=== PATIENT | female | born 1995 | race Caucasian/White ===

== ENCOUNTER 2016-10-27 18:48 | Emergency (ER) | payer SELFPAY ==
[2016-10-27 18:48] VITALS: BMI 27.2
[2016-10-27 19:25] VITALS: O2SAT 100
--- NOTE | 2016-10-27 19:56 | C.PDOC ---
History Of Present Illness 21 year old patient presents to the emergency department complaining of abdominal pain for the past 2 weeks. She notes bright red blood in her vomitus for the past few days. Patient denies black stool, fever, chest pain, shortness of breath or back pain. Time Seen by Provider: 10/27/16 19:55 Chief Complaint (Nursing): Abdominal Pain History Per: Patient History/Exam Limitations: no limitations Onset/Duration Of Symptoms: Worse Since (last few days), Other (2 weeks) Current Symptoms Are (Timing): Still Present Context: Other Severity: Mild Pain Scale Rating Of: 3 Location Of Pain/Discomfort: Diffuse Radiation Of Pain To:: None Quality Of Discomfort: "Pain" Associated Symptoms: Vomiting Exacerbating Factors: None Alleviating Factors: None Last Bowel Movement: Today Recent travel outside of the [place]: No Past Medical History Reviewed: Historical Data, Nursing Documentation, Vital Signs Vital Signs: Last Vital Signs Temp 98.0 F 10/27/16 23:06 Pulse 78 10/27/16 23:06 Resp 18 10/27/16 23:06 BP 96/63 L 10/27/16 23:06 Pulse Ox 100 10/27/16 23:06 - Jogli Procedures DELIVERY OF PRODUCTS OF CONCEPTION, EXTERNAL APPROACH (05/01/15) DIVISION OF FEMALE PERINEUM, EXTERNAL APPROACH (05/01/15) Family History: States: Unknown Family Hx - Social History Hx Tobacco Use: No Hx Alcohol Use: No Hx Substance Use: No - Immunization History Hx Tetanus Toxoid Vaccination: No Hx Influenza Vaccination: No Hx Pneumococcal Vaccination: No Review Of Systems Except As Marked, All Systems Reviewed And Found Negative. Constitutional: Negative for: Fever Cardiovascular: Negative for: Chest Pain Respiratory: Negative for: Shortness of Breath Gastrointestinal: Positive for: Vomiting, Abdominal Pain Musculoskeletal: Negative for: Back Pain Physical Exam - Physical Exam Appears: Non-toxic, No Acute Distress Skin: Warm, Dry Head: Atraumatic, Normacephalic Eye(s): bilateral: Normal Inspection Oral Mucosa: Moist Neck: Normal ROM, Supple Chest: Symmetrical Cardiovascular: Rhythm Regular Respiratory: Normal Breath Sounds, No Rales, No Rhonchi, No Wheezing Gastrointestinal/Abdominal: Soft, No Tenderness, No Guarding, No Rebound, Other (NG tube) Back: Normal Inspection, No CVA Tenderness Extremity: Normal ROM Neurological/Psych: Oriented x3, Normal Speech, Normal Cognition Gait: Steady ED Course And Treatment - Laboratory Results Result Diagrams: 10/27/16 20:19 10/27/16 20:19 O2 Sat by Pulse Oximetry: 100 (room air) Pulse Ox Interpretation: Normal Progress Note: Plan: Labs, Pepcid Medical Decision Making Medical Decision Making: Angio tube inserted. No acute bleeding noted. Disposition Counseled Patient/Family Regarding: Diagnosis - Disposition Referrals: [facility] [Outside] Disposition Time: 23:19 Condition: STABLE Prescriptions: Famotidine [Pepcid] 20 mg PO BID #14 tab Nitrofurantoin Macrocrystals [Macrobid] 1 cap PO BID #14 cap Instructions: (ED), Gastritis (DC), Urinary Tract Infection in (ED) - POA Present On Arrival: None - Clinical Impression Clinical Impression: Gastritis, Urinary tract infection affecting - Scribe Statement The provider has reviewed the documentation as recorded by the Scribe Milagros Keen Provider Attestation: All medical record entries made by the Scribe were at my direction and personally dictated by me. I have reviewed the chart and agree that the record accurately reflects my personal performance of the history, physical exam, medical decision making, and the department course for this patient. I have also personally directed, reviewed, and agree with the discharge instructions and disposition.
[2016-10-27 20:07] LABS: RBC URINE < 1 /hpf (0-3); URINE BACTERIA FEW (<OCC); URINE BILIRUBIN NEGATIVE (NEGATIVE); URINE BLOOD NEGATIVE (NEGATIVE); URINE COLOR Yellow (YELLOW); URINE GLUCOSE (UA) 1+ mg/dL (Normal); URINE KETONE NEGATIVE (NEGATIVE); URINE LEUKOCYTE ESTERASE 1+ Leu/uL (Negative); URINE PROTEIN NEGATIVE (NEGATIVE); URINE UROBILINOGEN NORMAL mg/dL (0.2-1.0); WBC URINE 42 /hpf (0-5)
[2016-10-27 20:27] LABS: BASO # 0.1 K/uL (0.0-0.2); BASO % 0.5 % (0.0-2.0); EOS % 0.3 % (0.0-4.0); HEMATOCRIT 35.7 % (34.0-47.0); LYMPH # 1.9 K/uL (1.0-4.3); LYMPH % 17.9 % (20.0-40.0); MEAN CORPUSCULAR HEMOGLOBIN 28.2 pg (27.0-31.0); MEAN CORPUSCULAR HGB CONC 33.6 g/dL (33.0-37.0); MEAN PLATELET VOLUME 8.2 fL (7.2-11.7); MONO # 0.7 K/uL (0.0-0.8); RED CELL DISTRIBUTION WIDTH 13.9 % (11.5-14.5); WHITE BLOOD COUNT 10.9 K/uL (4.8-10.8)
[2016-10-27 20:33] LABS: CHLORIDE 95 mmol/L (98-107); POTASSIUM 3.9 mmol/L (3.6-5.2); SODIUM 134 mmol/L (132-148)
[2016-10-27 20:35] LABS: BILIRUBIN,TOTAL 0.5 mg/dL (0.2-1.3); GFR AFRICAN-AMERICAN > 60
[2016-10-27 20:36] LABS: ALB/GLOB RATIO 1.5 (1.0-2.1); ALKALINE PHOSPHATASE 41 U/L (38-126); ALT/SGPT 24 U/L (9-52); AST/SGOT 16 U/L (14-36); BLOOD UREA NITROGEN 6 mg/dL (7-17); CALCIUM 8.7 mg/dl (8.6-10.4); CARBON DIOXIDE 29 mmol/L (22-30); GLUCOSE,RANDOM 81 mg/dL (65-105); TOTAL PROTEIN 7.2 g/dL (6.3-8.3)
[2016-10-27 23:07] VITALS: BP 96/63; PULSE 78; RESP 18; TEMP 98
== END 2016-10-27 23:27 | disposition home or self-care (01) ==
LOC: C.ER 18:48
DX: O23.40 Unspecified infection of urinary tract in pregnancy, unspecified trimester (principal); O26.899 Other specified pregnancy related conditions, unspecified trimester; K29.70 Gastritis, unspecified, without bleeding; Z3A.00 Weeks of gestation of pregnancy not specified

== ENCOUNTER 2017-02-02 21:35 | Emergency (ER) | payer OTHER ==
[2017-02-02 22:00] VITALS: BMI 24.6
[2017-02-02 22:26] LABS: RBC URINE < 1 /hpf (0-3); URINE BACTERIA RARE (<OCC); URINE BILIRUBIN NEGATIVE (NEGATIVE); URINE BLOOD NEGATIVE (NEGATIVE); URINE COLOR Yellow (YELLOW); URINE GLUCOSE (UA) NORMAL (Normal); URINE KETONE NEGATIVE (NEGATIVE); URINE LEUKOCYTE ESTERASE 3+ Leu/uL (Negative); URINE PROTEIN NEGATIVE (NEGATIVE); URINE UROBILINOGEN NORMAL mg/dL (0.2-1.0)
[2017-02-02 22:27] LABS: WBC URINE 20 /hpf (0-5)
--- NOTE | 2017-02-02 22:46 | OBHP ---
Datetime: 02/02/2017 22:41 IP Adm Impression: , intrauterine IP Chief Complaint Other: cramping Admit Comment, IP Provider: at 24+weks came with c/o pain on walking and cramping for few daysa , no ctxs, vb, lf,+fm, no dysuria. obhx 1 x pmh den soch den psh den ve closed ua 3 +le a/p at 24weeks uti plan dc home ptl given po hyra macrobid 100 mg bid x 7 days f/u in clinic in 3-4 days Pelvic Type - PN: Adequate Extremities - PN: Normal Abdomen - PN: Normal Back - PN: Normal Breast - PN: Normal Lungs - PN: Normal Heart - PN: Normal Thyroid - PN: Normal Neurologic - PN: Normal HEENT - PN: Normal General - PN: Normal FHR - Baseline A Provider: 140 Contraction Comments Provider: none Comments, ACOG Physical Exam: gravid,non ten ext no luiz ve closed Vital Signs Provider: Reviewed; Within Normal Limits NICHD Variability Prov Fetus A: Moderate 6-25bpm Dilatation, Provider: 0 Effacement, Provider: 0 Station, Provider: -3 Genitourinary Exam: Normal DTRs - PN: Normal
--- NOTE | 2017-02-02 22:46 | OBDCSUM ---
Datetime: 02/02/2017 22:44 Discharged to, Provider: Home Follow up at, Provider: 3-4 days Follow up in weeks, Provider: clinic Disch Activity Restrictions: Nothing in vagina - Alicia, tampons, douche Discharge Comment, Provider: dc home ptl given po hyra macrobid 100 mg bid x 7 days f/u in clinic in 3-4 days Discharge Diagnosis Prov Other: 24wee uti
[2017-02-03 03:28] VITALS: BP 102/51; PULSE 81; RESP 18; TEMP 98.2
== END 2017-02-02 22:50 | disposition home or self-care (01) ==
LOC: C.EROB 21:35
DX: O23.42 Unspecified infection of urinary tract in pregnancy, second trimester (principal); Z3A.24 24 weeks gestation of pregnancy

== ENCOUNTER 2017-02-07 20:40 | Emergency (ER) | payer OTHER ==
--- NOTE | 2017-02-07 21:26 | OBHP ---
Datetime: 02/07/2017 21:19 IP Adm Impression: , intrauterine ; No Active Labor IP Chief Complaint Other: bloodin urine IP Adm Impression Other: uti IP Admit Plan: Discharge home Admit Comment, IP Provider: chief complaint-bllod in urine HPI at 25.1 wga with c/o noticing blood in urine this evening when at school.Patient was diag nosed with uti 3 days ago and given macrobid.she did not fill alec script so far.deneis back pain, fev er, chills, dysuria, urgency course uncomplicated PMH denies PSH denies OBGYN HX Social hx denies tobacco,alcohol or illicit drug use Exam see exam section Speculum exam-no blood in vagina; cervix closed A/P Patient at 25.1 wga with hematuria.UTI -Ptaient advsied to fill the scruipt for antibiotic nighat -drink plenty of fluid -follow up in clinic in 2 days Pelvic Type - PN: Adequate Extremities - PN: Normal Abdomen - PN: Normal Back - PN: Normal Lungs - PN: Normal Heart - PN: Normal Neurologic - PN: Normal General - PN: Normal FHR - Baseline A Provider: 145 Contraction Comments Provider: none Gestation - Est Wks by US: 25.1 EGA AdmitDate IP: 25.1 Vital Signs Provider: Reviewed; Within Normal Limits IP Chief Complaint: Other NICHD Variability Prov Fetus A: Moderate 6-25bpm Dilatation, Provider: 0 Genitourinary Exam: Normal DTRs - PN: Normal
[2017-02-08 01:38] VITALS: BP 99/44; PULSE 95; RESP 20
== END 2017-02-07 21:16 | disposition home or self-care (01) ==
LOC: C.EROB 20:40
DX: O26.892 Other specified pregnancy related conditions, second trimester (principal); R31.9 Hematuria, unspecified; Z3A.25 25 weeks gestation of pregnancy

== ENCOUNTER 2017-03-02 17:38 | Emergency (ER) | payer OTHER ==
--- NOTE | 2017-03-02 22:01 | OBHP ---
Datetime: 03/02/2017 21:56 Admit Comment, IP Provider: OB attending Patient arrived to [facility] Was was put on monitor rn notifie dme of the patient arrival but patient left the hospital without being evaluated by me. Found the patient room to be empty.Patient was called and then on no reply her mother was called and informed of the patient leaving the unit without informin.Patient eventually called back and stated s he feels ok and will follow up with obgyn Datetime: 02/07/2017 21:19 EGA AdmitDate IP: 25.1
[2017-03-03 10:30] VITALS: BP 98/58; PULSE 83; RESP 18; TEMP 98.8
== END 2017-03-02 18:30 | disposition left against medical advice (07) ==
LOC: C.EROB 17:38
DX: Z02.89 Encounter for other administrative examinations (principal); Z00.00 Encounter for general adult medical examination without abnormal findings

== ENCOUNTER 2017-05-23 22:48 | Emergency (ER) | payer OTHER ==
[2017-04-18 18:11] VITALS: BMI 26.2
--- NOTE | 2017-05-23 23:23 | OBHP ---
Datetime: 05/23/2017 23:06 IP Adm Impression: Postterm, intrauterine ; No Active Labor IP Admit Plan: Discharge home Admit Comment, IP Provider: 22 y.o. , LMP 08/15/16, ANA 05/22/17, EGA 40w 1d c/o lower abdomi nal cramps "like bad period cramps", 08/05; and low back pain x 4-5 days "it's more uncomfortable to e [place] walk". (+) AFM; denies LOF, VB. Last had sexual intercourse 3 weeks ago. care: [facility]: noted for anemia, and treated for UTI x 2. P Ob: 2014, Spont Ab, 3 months, no D_C. late 2014, , female 6lb 7oz, [facility] 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 No Pap to date PMH: denies PSH: denies NKDA Meds: PNV Soc Hx: denies tobacco , illicit drug or EtOH use. Lives with her daughter and a grandmother. With FOB x 1 1/2 years. 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 Father alive 37 y.o.; both, no med issues. (+) fam h/o ovarian and pa ncreatic cancer P.E.: as above. Petite, in NAD. Awake, alert, oriented to time, person and place. Pleasant and co operative. FOB present. Assessment: 22 y.o. P1011, 40w 1d, not in labor. Category 1 tracing. Clinically stable. Plan: 1) Discharge home 2) Reviewed S/S labor. 3) Keep appointment 05/24/17 4) Anticipate IOL at 41 weeks (05/30/17), if no spontaneous onset of labor. Pelvic Type - PN: Adequate Extremities - PN: Normal Abdomen - PN: Normal Back - PN: Normal Breast - PN: Not Done Lungs - PN: Normal Heart - PN: Normal Thyroid - PN: Not Done Neurologic - PN: Normal HEENT - PN: Normal General - PN: Normal Presentation-Admit: Vertex FHR - Baseline A Provider: 135 Contraction Comments Provider: none Comments, ACOG Physical Exam: Abdomen: Gravid. Soft, non tender. all other systems reviewed and are negative Gestation - Est Wks by US: 40w 1d EGA AdmitDate IP: 40.1 Vital Signs Provider: Reviewed; Within Normal Limits IP Chief Complaint: Maternal discomfort NICHD Variability Prov Fetus A: Moderate 6-25bpm NICHD Accel Fetus A IP Provider: 15X15 FHR Category Provider Fetus A: Category I NICHD Decel Fetus A IP Provider: None Dilatation, Provider: 0 Effacement, Provider: long Station, Provider: high Genitourinary Exam: Normal DTRs - PN: Not Done
[2017-05-24 03:41] VITALS: BP 122/61; PULSE 86; RESP 18; TEMP 98.2
== END 2017-05-23 23:18 | disposition home or self-care (01) ==
LOC: C.EROB 22:48
DX: O26.893 Other specified pregnancy related conditions, third trimester (principal); Z3A.40 40 weeks gestation of pregnancy; R10.30 Lower abdominal pain, unspecified

== ENCOUNTER 2017-05-29 14:40 | Emergency (ER) | payer OTHER ==
[2017-04-18 18:11] VITALS: BMI 26.2
--- NOTE | 2017-05-29 14:53 | OBHP ---
Datetime: 05/29/2017 14:40 IP Adm Impression: Postterm, intrauterine ; No Active Labor IP Admit Plan: Discharge home Admit Comment, IP Provider: 22 y.o. , LMP 08/15/16, ANA 05/22/17, EGA 41 weeks presented for IOL. (+) AFM; denies LOF, VB. Last had sexual intercourse 3 weeks ago. care: [facility]: not ed for anemia, and treated for UTI x 2. Not seen since 04/21/17; has missed all her appointments sinc e then. P Ob: 2014, Spont Ab, 3 months, no D_C. late 2014, , female 6lb 7oz, [facility] 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 No Pap to date PMH: denies PSH: denies NKDA Meds: PNV Soc Hx: denies tobacco, illicit drug or EtOH use. Lives with her daughter and a grandmother. With FOB x 1 1/2 years. 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 Father alive 37 y.o.; both, no med issues. (+) fam h/o ovarian and p ancreatic cancer P.E.: as above. Petite, in NAD. Awake, alert, oriented to time, person and place. Pleasant and co operative. FOB present. Assessment: 22 y.o. P1011, 41 weeks, not in labor. Category 1 tracing. Clinically stable. Plan: 1) Discharge home 2) Reviewed S/S labor. 3) Keep appointment 05/30/17 Pelvic Type - PN: Adequate Extremities - PN: Normal Abdomen - PN: Normal Back - PN: Normal Breast - PN: Not Done Lungs - PN: Normal Heart - PN: Normal Thyroid - PN: Not Done Neurologic - PN: Normal HEENT - PN: Normal General - PN: Normal FHR - Baseline A Provider: 135 Contraction Comments Provider: none EGA AdmitDate IP: 41.0 Vital Signs Provider: Reviewed; Within Normal Limits IP Chief Complaint: Maternal discomfort NICHD Variability Prov Fetus A: Moderate 6-25bpm NICHD Accel Fetus A IP Provider: 15X15 FHR Category Provider Fetus A: Category I NICHD Decel Fetus A IP Provider: None Dilatation, Provider: FT Effacement, Provider: 30 Station, Provider: -3 Genitourinary Exam: Normal DTRs - PN: Not Done
[2017-05-29 19:54] VITALS: PULSE 104; O2SAT 96
== END 2017-05-29 15:00 | disposition home or self-care (01) ==
LOC: C.EROB 14:40
DX: O26.893 Other specified pregnancy related conditions, third trimester (principal); Z3A.41 41 weeks gestation of pregnancy

== ENCOUNTER 2017-05-31 07:18 | Inpatient (IN) | payer OTHER ==
[2017-05-31 07:38] VITALS: BMI 27.8
[2017-05-31] MEDS ORDERED: Lactated Ringer's 1,000 ML IV SCH ×2 (07:45)
[2017-05-31 08:17] LABS: BASO % 0.4 % (0.0-2.0); EOS # 0.1 K/uL (0.0-0.7); HEMOGLOBIN 9.5 g/dL (11.0-16.0); LYMPH # 2.4 K/uL (1.0-4.3); LYMPH % 32.2 % (20.0-40.0); MEAN CELL VOLUME 71.5 fL (81.0-99.0); MEAN CORPUSCULAR HEMOGLOBIN 23.5 pg (27.0-31.0); MEAN CORPUSCULAR HGB CONC 32.9 g/dL (33.0-37.0); MEAN PLATELET VOLUME 9.2 fL (7.2-11.7); MONO # 0.5 K/uL (0.0-0.8); MONO % 7.1 % (0.0-10.0); NEUT # 4.4 K/uL (1.8-7.0); NEUT % 59.3 % (50.0-75.0); RBC 4.04 Mil/uL (3.80-5.20); RED CELL DISTRIBUTION WIDTH 18.6 % (11.5-14.5); WHITE BLOOD COUNT 7.3 K/uL (4.8-10.8)
[2017-05-31 08:29] LABS: ALBUMIN 3.6 g/dL (3.5-5.0); ALT/SGPT 19 U/L (9-52); AST/SGOT 19 U/L (14-36); BLOOD UREA NITROGEN 6 mg/dL (7-17); CALCIUM 8.5 mg/dl (8.6-10.4); GFR AFRICAN-AMERICAN > 60; GFR NON-AFRICAN AMERICAN > 60
--- NOTE | 2017-05-31 13:04 | OBADHP ---
Datetime: 05/31/2017 07:10 IP Admit Plan Other: Cervical ripening Admit Comment, IP Provider: 22 y.o. , LMP unsure, ANA 05/12/17, EGA 41w 2d c/o decreased fet al movememt. Denies LOF, VB, Ctx; (+) lower abdominal pressure. care: [facility]; last docum ented visit 04/21/17; seen 05/30/17 - no reported issues. GBS (-) P Ob: 2014, Spont Ab, 3 months, no D_C. late 2014, , female 6lb 7oz, [facility] 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 No Pap to date PMH: denies PSH: denies NKDA Meds: PNV Soc Hx: denies tobacco , illicit drug or EtOH use. Lives with her daughter and a grandmother. With FOB x 1 1/2 years. 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 Father alive 37 y.o.; both, no med issues. (+) fam h/o ovarian and pa ncreatic cancer P.E.: as above. Petite, in NAD. Awake, alert, oriented to time, person and place. Pleasant and c ooperative. FOB present. Assessment: 22 y.o. P1011, 41w 2d, limited care; decreased movement. GBS (-). D/ W patient cervical ripenieng; possible augmentation. Also discussed pain management. Patient expresse d an understanding; no questions offered. Category 1 tracing. Clinically stable. Plan: 1) Admit 2) NPO 3) IVFs 4) Continuous EFM 5) Admission labs 6) Cervidil 7) Pain meds, upon request 8) Anticipate vaginal delivery Addendum: - cervidil placed in posterior vaginal vault at 0806 hours Plan: - as above. Pelvic Type - PN: Adequate Extremities - PN: Normal Abdomen - PN: Normal Back - PN: Normal Breast - PN: Not Done Lungs - PN: Normal Heart - PN: Normal Thyroid - PN: Not Done Neurologic - PN: Normal HEENT - PN: Normal General - PN: Normal Weight - Estimated: 3178 Presentation-Admit: Vertex FHR - Baseline A Provider: 125 Membranes, Provider: Intact Contraction Comments Provider: none Comments, ACOG Physical Exam: Abdomen: Gravid. Soft. Fundal height 38 cm All other systems reviewed and are negative Gestation - Est Wks by US: 41w 2d IP Hx Assessment: The History has been Reviewed and is Current Vital Signs Provider: Reviewed; Within Normal Limits IP Chief Complaint: Decreased movement NICHD Variability Prov Fetus A: Moderate 6-25bpm NICHD Accel Fetus A IP Provider: 15X15 FHR Category Provider Fetus A: Category I NICHD Decel Fetus A IP Provider: None Dilatation, Provider: FT Effacement, Provider: 30 Station, Provider: -3 Genitourinary Exam: Normal DTRs - PN: Not Done EGA AdmitDate IP: 41.2 IP Adm Impression: Postterm, intrauterine ; No Active Labor; Intact Membranes IP Admit Plan: Admit to unit; Initiate labor protocol Datetime: 02/07/2017 21:19 IP Chief Complaint Other: bloodin urine IP Adm Impression Other: uti
[2017-05-31] MEDS ORDERED: Bupivacaine HCl 0.25% PF (10 ml) Inj ONE ×2 (19:06→21:20)
[2017-05-31] MEDS ORDERED: Bupivacaine HCl/FentaNYL Cit 100 ML EPI ONE (19:23)
--- NOTE | 2017-05-31 20:28 | OBPN ---
Datetime: 05/31/2017 20:21 IP Progress Impression: Normal progression of labor; Rupture of membranes IP Procedures: Sterile Vag Exam IP Progress Plan: Continue present management; Augmentation; Anticipate Vaginal Delivery Membranes, Provider: Ruptured Contraction Comments Provider: 1-2 FHR - Baseline A Provider: 135 Gestation - Est Wks by US: 41w 2d Presentation-Admit: Vertex IP Progress Note Comment: Cervidil due to be removed. Patient reports SROM at 1840 hours Cervical exam as above. Cervidil removed Assessment: 22 y.o. P1, 41w 2d IOL. S/P cervidil x 1 - good response. SROM. D/W patient possible a ugmentaiton, if needed. Patient agrees. Category 1 tracing. Clinically stable. Plan: 1) Continue present management 2) Possible augmentation 3) Anticipate vaginal delivery NICHD Accel Fetus A IP Provider: 15X15 FHR Category Provider Fetus A: Category I NICHD Variability Prov Fetus A: Moderate 6-25bpm Dilatation, Provider: 4 Effacement, Provider: 80 Station, Provider: -3 NICHD Decel Fetus A IP Provider: Early Datetime: 05/31/2017 07:10 Weight - Estimated: 3178 Vital Signs Provider: Reviewed; Within Normal Limits
[2017-05-31] MEDS ORDERED: Lidocaine 2% MPF (5 ml) Inj ONE ×2 (21:30→21:40)
[2017-06-01] MEDS ORDERED: Lidocaine 2% Inj (20ml) ONE (01:18)
--- NOTE | 2017-06-01 02:27 | OBDS ---
DELIVERY PERSONNEL Delivery Doctor: Casey Rubi MD Scrub Nurse: Diana Marlow Coffee Supervisor: Sarah Eagle RN Anesthesiologist: Casey Delarosa MD MATERNAL INFORMATION Delivery Anesthesia: Epidural Medications in Delivery: Pitocin 20 units IV Estimated Blood Loss (ml): 200 Placenta Cultured: No Maternal Complications: None RN Comments: Curtis Machado RN nursery nurse Provider Comments: Uncomplicated vaginal delivery of live female over intact perineum, TRAMAINE positoin, weight 6lb 13oz, 's 9/9. Infant's mouth and nose bulb-suctoined on perineum. Umbilical cord misti minerva clamped and cut; infant placed on mother's abdomen. Spontaneous delivery of placenta - grossly intact; 3 vessel cord. Uterine exploratoin performed; uterus firm, and contracted. Left periurethral 1st degree laceratio n as above; repaired Patient tolerated procedure well; skin- to -skin and initiated. Mother and aamir nding; both in stable condition LABOR SUMMARY EDC: 05/22/2017 00:00 No. Babies in Womb: 1 Attempted: No Labor Anesthesia: Epidural LABOR INFORMATION Reason for Induction: Postterm Reason for Induction Other: N/A Onset of Labor: 05/31/2017 19:35 Complete Dilatation: 06/01/2017 23:00 Cervical Ripening Agents: Cervidil (Annotations: inserted by Dr. Rubi.) Other Ripening Agents: cervidil Oxytocin: N/A Group B Beta Strep: Negative Antibiotics # of Doses: N/A Antibiotics Time of Last Dose: N/A Steroids Given: None Reason Steroids Not Administered: Not Applicable Other Reason Not Administered: N/A MEMBRANES Membranes Rupture Method: Spontaneous Rupture of Membranes: 05/31/2017 18:40 Length of Rupture (hrs): 6.48 Amniotic Fluid Color: Clear Amniotic Fluid Amount: Moderate Amniotic Fluid Odor: Normal STAGES OF LABOR Stage 1 hrs: 27 Stage 1 min: 25 Stage 2 hrs: -21 Stage 2 min: -51 Stage 3 hrs: 0 Stage 3 min: 13 Total Time in Labor hrs: 5 Total Time in Labor min: 47 VAGINAL DELIVERY Episiotomy: None Laceration Extension: First Degree Laceration Type: Periurethral Laceration Repair: Yes Laceration Repair Note: 3-0 chromic - routine fashion. Hemostasis assured. Patient tolerated proced ure well. Initial Vag Sponge Count: 10 Final Vag Sponge Count: 10 Initial Vag Sharps Count: 0 Final Vag Sharps Count: 1 Sponge Count Correct: Yes; Vaginal Sweep Performed Sharps Count Correct: Yes Count Comment: Correct BABY A INFORMATION Delivery Date/Time: 06/01/2017 01:09 Method of Delivery: Vaginal Born in Route : No : N/A Forceps: N/A Vacuum Extraction: N/A Shoulder Dystocia : No SHOULDER DYSTOCIA BABY A Infant Delivery Date/Time: 06/01/2017 01:09 PRESENTATION/POSITION BABY A Presentation: Cephalic Cephalic Presentation: Vertex PLACENTA INFORMATION BABY A Placenta Delivery Time : 06/01/2017 01:22 Placenta Method of Delivery: Spontaneous Placenta Status: Delivered SCORES BABY A Heart Rate 1 min: >100 bpm Resp Effort 1 min: Good Cry Reflex Irritability 1 min: Cough or Sneeze or Pulls Away Muscle Tone 1 min: Active Motion Color 1 min: Body [place], Extremities Blue SCORE 1 MIN: 9 Heart Rate 5 min: >100 bpm Resp Effort 5 min: Good Cry Reflex Irritability 5 min: Cough or Sneeze or Pulls Away Muscle Tone 5 min: Active Motion Color 5 min: Body [place], Extremities Blue SCORE 5 MIN: 9 INFORMATION BABY A Gestational Age at Delivery: 41.3 Gestational Status: Term Outcome : Liveborn Infant Condition : Stable Infant Sex: Female IDENTIFICATION/MEDS BABY A ID Band Number: [id number] ID Band Location: Left Leg; Left Arm Sensor Applied: Yes Sensor Number: [id number] Sensor Location : Cord Clamp Vitamin K Given : Aquamephyton 1 mg IM; Left Thigh Erythromycin Given: Given Both Eyes WEIGHT/LENGTH BABY A Birthweight (gms): 3100 Infant Weight (lb): 6 Weight (oz): 13 Infant Length Inches: 19.50 Length cms: 49.5 CORD INFORMATION BABY A No. Cord Vessels: 3 Nuchal Cord : N/A Cord Blood Taken: Yes Infant Suction: Mouth ASSESSMENT BABY A Infant Complications: None Physical Findings at Delivery: Within Normal Limits Infant Respirations: Appears Normal Supply Manager/ALS Called : No Care By: Curtis Machado Transferred To: Remains with Mother
[2017-06-02 07:20] LABS: MEAN CELL VOLUME 72.3 fL (81.0-99.0); MEAN CORPUSCULAR HGB CONC 33.2 g/dL (33.0-37.0); MEAN PLATELET VOLUME 8.9 fL (7.2-11.7); RBC 2.44 Mil/uL (3.80-5.20); RED CELL DISTRIBUTION WIDTH 19.1 % (11.5-14.5); WHITE BLOOD COUNT 9.2 K/uL (4.8-10.8)
[2017-06-02 07:25] LABS: HEMOGLOBIN 5.9 g/dL (11.0-16.0)
[2017-06-02] MEDS ORDERED: Oxycodone/Acetaminophen 5/325 mg Tab PO PRN ×2 (07:59)
[2017-06-02] MEDS: Multiple Vitamins Tab PO SCH (10:21)
[2017-06-02 11:11] LABS: BASO % 0.5 % (0.0-2.0); EOS # 0.1 K/uL (0.0-0.7); EOS % 0.6 % (0.0-4.0); LYMPH # 1.9 K/uL (1.0-4.3); LYMPH % 18.6 % (20.0-40.0); MEAN CORPUSCULAR HEMOGLOBIN 23.8 pg (27.0-31.0); MEAN PLATELET VOLUME 8.8 fL (7.2-11.7); MONO # 0.8 K/uL (0.0-0.8); MONO % 7.3 % (0.0-10.0); NEUT # 7.5 K/uL (1.8-7.0); RBC 2.72 Mil/uL (3.80-5.20); RED CELL DISTRIBUTION WIDTH 19.6 % (11.5-14.5); WHITE BLOOD COUNT 10.2 K/uL (4.8-10.8)
[2017-06-02 11:17] LABS: HEMOGLOBIN 6.5 g/dL (11.0-16.0)
--- NOTE | 2017-06-02 11:42 | CP.PCM.PCO ---
Physician Communication Note - Physician Communication Note Physician Communication Note: Patient refused blood transfusion due to length of administration. Subjective - Physician Review Events Since Last Encounter (Free Text): 06/02/17 11:43 Baseline hemoglobin is 11-12. On admission, her hemoglobin was 9.5. This morning hemoglobin was 5.9. with repeat hemoglobin 6.5. This morning patient was asymptomatic. Patient was advised to have 2 units transfused. Initially the patient agreed, due to developing symptoms of dizziness. However, she asked how long each unit of blood would run for. She did not want the units to run for 2- 3 hours each. It was explained to the patient since she is not actively bleeding , we run the blood slower over time. Risks were explained to the patient, including syncope, palpitations, cardiac ischemia, including cardiac arrest. Patient reports she understand these risks, but is still refusing blood. She does not want to get poked again with needles and does not want the blood to run for the long length. Explained to patient if she changes her mind, we will transfuse. Advised to page nurse when ambulating, as patient is now fall risk. Anne Cordoba DO, PGY-1
--- NOTE | 2017-06-02 14:26 | OBPPN ---
Datetime: 06/02/2017 14:24 PP Pain Prov: Within normal limits PP Nausea Prov: Denies PP Flatus Prov: Yes PP Heart Prov: Normal PP Lungs Prov: Normal PP Abdomen/Uterus Prov: Normal PP Lochia Prov: Normal PP CVA Tenderness Prov: Normal PP C/S Incision Prov: Not Applicable PP Progress Prov: Normal PP Impression Prov: Normal progression PP Plan Prov: Continue present management PP Progress Note Prov: S-patient reports that her pain si well controlled.she is tolerating reg diet .she is ambulating and voiding without difficulty O-VSS Afebrile FUndus firm and below umbilicus Abdomen soft and nontender extremities no calf tenderness A/P Patient s/p vaginal delivery PPD 1.anemia noted on labs.confrirmed with repeat cbc -start itron -tranfuse 2 units -monitri closely Vital Signs Provider PP: Reviewed; Within Normal Limits
--- NOTE | 2017-06-03 07:45 | OBPPN ---
Datetime: 06/03/2017 07:44 PP Pain Prov: Within normal limits PP Nausea Prov: Denies PP Flatus Prov: Yes PP Abdomen/Uterus Prov: Normal PP Lochia Prov: Normal PP Extremities Prov: Normal PP Impression Prov: Normal progression PP Plan Prov: Discharge PP Impression Other Prov: anemia PP Progress Note Prov: pt was seen at bed side, pain under contrl, no n/v, tolerating deit,voiding,m in lochia , flatusa+,no sob or chest pain. pt refused blood transfusion. ppd#2 s/p anemia dc home no sex ferous sulfate tid motrin prn f/u in 1week Vital Signs Provider PP: Reviewed; Within Normal Limits
--- NOTE | 2017-06-03 07:48 | OBDCSUM ---
Datetime: 06/03/2017 07:45 Discharged to, Provider: Home Follow up at, Provider: 1wek Discharge Diagnosis, Provider: Term Delivered Follow up in weeks, Provider: clinic Disch Activity Restrictions: Minimize stair-climbing; No sexual activity; Nothing in vagina - Interc ourse, tampons, douche Discharge Comment, Provider: md home no sex ferous sulfate tid motrin prn f/u in 1week Discharge Diagnosis Prov Other: anemia s/p
[2017-06-03 08:14] VITALS: BP 101/64; PULSE 86; RESP 18; TEMP 98.5; O2SAT 97
[2017-06-03 08:14] LABS: BASO % 0.5 % (0.0-2.0); EOS # 0.1 K/uL (0.0-0.7); LYMPH # 2.5 K/uL (1.0-4.3); LYMPH % 27.2 % (20.0-40.0); MEAN CELL VOLUME 71.5 fL (81.0-99.0); MEAN CORPUSCULAR HEMOGLOBIN 23.6 pg (27.0-31.0); MEAN PLATELET VOLUME 8.8 fL (7.2-11.7); MONO # 0.6 K/uL (0.0-0.8); MONO % 6.3 % (0.0-10.0); RBC 2.61 Mil/uL (3.80-5.20); RED CELL DISTRIBUTION WIDTH 19.2 % (11.5-14.5); WHITE BLOOD COUNT 9.2 K/uL (4.8-10.8)
[2017-06-03 08:22] LABS: HEMOGLOBIN 6.2 g/dL (11.0-16.0)
[2017-06-03] MEDS: Multiple Vitamins Tab PO SCH (09:20)
[2017-06-03] MEDS ORDERED: Influenza Vaccine 60 mcg/0.5 mL SYR (4YR UP) IM ONE (10:00)
[2017-06-03] MEDS ORDERED: Oxytocin 10 Units/ml Inj ONE (10:21)
== END 2017-06-03 13:42 | disposition home or self-care (01) | DRG 373 ==
LOC: C.ER 07:18 → C.4D 07:37 → C.4M 06-01 02:45
PROVIDERS: ADMIT Obstetrics & Gynecology; ATTEND Obstetrics & Gynecology
PROC: 0HQ9XZZ Repair Perineum Skin, External Approach (ICD-10-PCS; principal; 2017-06-01)
PROC: 10E0XZZ Delivery of Products of Conception, External Approach (ICD-10-PCS; 2017-06-01)
PROC: 3E0234Z Introduction of Serum, Toxoid and Vaccine into Muscle, Percutaneous Approach (ICD-10-PCS; 2017-06-03)
DX: O48.0 Post-term pregnancy (principal); O70.0 First degree perineal laceration during delivery; O99.02 Anemia complicating childbirth; Z3A.41 41 weeks gestation of pregnancy; Z23 Encounter for immunization; Z37.0 Single live birth

== ENCOUNTER 2017-08-26 16:55 | Emergency (ER) | payer OTHER ==
[2017-08-26 16:56] VITALS: BMI 27.8
[2017-08-26 17:12] VITALS: TEMP 98.1; O2SAT 100
[2017-08-26 17:37] LABS: SQUAMOUS EPITHIAL 3 /hpf (0-5); URINE BILIRUBIN NEGATIVE (NEGATIVE); URINE BLOOD 2+ (NEGATIVE); URINE CLARITY Clear (Clear); URINE COLOR Yellow (YELLOW); URINE GLUCOSE (UA) NORMAL (Normal); URINE LEUKOCYTE ESTERASE NEG Leu/uL (Negative); URINE PROTEIN NEGATIVE (NEGATIVE); URINE UROBILINOGEN NORMAL mg/dL (0.2-1.0)
--- NOTE | 2017-08-26 17:39 | C.PDOC ---
History Of Present Illness 22 yo female w/o significant PMHx come in to the emergency room for evaluation of malaise, sore throat, few episodes of non-bilious vomiting since today AM. Patient admits positive sick contacts at home. Otherwise, pt denies high fever, chills, headache, dizziness, drooling, neck pain, [employer], SOB, dyspnea, wheezing, hematemesis, diarrhea, melena, back pain, UTI sx, or recent travel. HPI: Influenza Time Seen by Provider: 08/26/17 17:04 Chief Complaint: Flu-like Symptoms History Per: Patient Onset/Duration Of Symptoms: Hrs Sick Contacts (Context): Family Member(s) Past Medical History Reviewed: Historical Data, Nursing Documentation, Vital Signs Vital Signs: Last Vital Signs Temp 98.1 F 08/26/17 17:03 Pulse 101 H 08/26/17 17:03 Resp 16 08/26/17 17:03 BP 104/66 08/26/17 17:03 Pulse Ox 100 08/26/17 17:03 - Medical History PMH: No Chronic Diseases - [facility] Procedures DELIVERY OF PRODUCTS OF CONCEPTION, EXTERNAL APPROACH (05/31/17) DIVISION OF FEMALE PERINEUM, EXTERNAL APPROACH (05/01/15) INTRODUCTION OF SERUM/TOX/VACCINE INTO MUSCLE, PERC APPROACH (05/31/17) REPAIR PERINEUM SKIN, EXTERNAL APPROACH (05/31/17) Family History: States: Unknown Family Hx - Social History Hx Tobacco Use: No Hx Alcohol Use: No Hx Substance Use: No - Immunization History Hx Tetanus Toxoid Vaccination: No Hx Influenza Vaccination: No Hx Pneumococcal Vaccination: No Review Of Systems Except As Marked, All Systems Reviewed And Found Negative. Constitutional: Positive for: Malaise. Negative for: Fever, Chills Eyes: Negative for: Redness ENT: Positive for: Nose Discharge, Nose Congestion, Throat Pain. Negative for: Ear Pain, Ear Discharge, Throat Swelling Cardiovascular: Negative for: Chest Pain Respiratory: Negative for: Cough, Shortness of Breath, Wheezing Gastrointestinal: Positive for: Nausea, Vomiting. Negative for: Abdominal Pain , Diarrhea Genitourinary: Negative for: Dysuria, Frequency Musculoskeletal: Negative for: Neck Pain, Back Pain Skin: Negative for: Rash Neurological: Negative for: Altered Mental Status, Headache, Dizziness Physical Exam - Physical Exam Appears: Well, Non-toxic, No Acute Distress Skin: Normal Color, Warm, Dry, No Rash Head: Normacephalic Eye(s): bilateral: PERRL Nose: No Flaring, No Discharge Oral Mucosa: Moist, No Drooling Throat: No Erythema, No Drooling Neck: Trachea Midline, Supple Cardiovascular: Rhythm Regular, No Murmur, No JVD Respiratory: No Decreased Breath Sounds, No Accessory Muscle Use, No Stridor, No Wheezing Gastrointestinal/Abdominal: Soft, No Tenderness, No Distention, No Guarding, No Rebound Back: No CVA Tenderness Extremity: Normal ROM, No Deformity, No Swelling Neurological/Psych: Oriented x3, Normal Speech - Laboratory Results Urine POC: Negative - ECG O2 Sat by Pulse Oximetry: 100 Pulse Ox Interpretation: Normal - Progress ED Course And Treament: On re-evaluation, pt is afebrile, hemodynamicaly stable. Non-toxic. Tolerate Po well in ED. PulseOx 100% RA ENT: no acute findings neck: Supple, (-) meningeal sign Lungs: CTA B/L, BS equal B/L. Abd: benign, (-) guarding, (-) rebound back: (-) CVA tenderness Neurologicaly intact. Pt has clinical findings c/w viral illness. Pt advised, ref. to f/u with PMD in 1-2 days for re-eval. return to ED if any worsening or new changes. Disposition Counseled Patient/Family Regarding: Studies Performed, Diagnosis, Need For Followup, Rx Given - Disposition Referrals: [facility] [Outside] Disposition: HOME/ ROUTINE Disposition Time: 17:45 Condition: STABLE Additional Instructions: Encourage fluids Take medication as prescribed Follow up with PMD in 2 days for re-evaluation. Return to ED if nay worsening or new changes. Prescriptions: Ondansetron ODT [Zofran ODT] 1 odt PO BID PRN #6 odt PRN Reason: Nausea/Vomiting Oseltamivir Phosphate [Tamiflu] 75 mg PO BID #10 capsule Instructions: Nausea and Vomiting, Adult (DC), Viral Syndrome (DC) Forms: [employer] (Nigerien) - Clinical Impression Clinical Impression: Nausea, Vomiting, Influenza-like illness
[2017-08-26 18:36] VITALS: BP 106/71; PULSE 98; RESP 18
== END 2017-08-26 18:36 | disposition home or self-care (01) ==
LOC: C.ER 16:55
DX: J11.1 Influenza due to unidentified influenza virus with other respiratory manifestations (principal); R11.2 Nausea with vomiting, unspecified

== ENCOUNTER 2018-07-12 09:13 | Emergency (ER) | payer OTHER ==
[2018-07-12 09:13] VITALS: BMI 27.8
[2018-07-12 09:27] VITALS: BP 121/72; PULSE 92; RESP 20; TEMP 98.3; O2SAT 98
--- NOTE | 2018-07-12 15:31 | C.PDOC ---
History Of Present Illness 23 y/o female presents to the ER complaining of nasal congestion and non- productive cough which has been present for the past 2 days. Patient states that she has subjective fever. Patient reports that she has sick contacts, she has 2 sick children at home. She notes that she did not receive the flu vaccination.Denies having nausea, vomiting, and abdominal pain. Chief Complaint (Nursing): Cough, Cold, Congestion History Per: Patient History/Exam Limitations: no limitations Onset/Duration Of Symptoms: Days Current Symptoms Are (Timing): Still Present Severity: Moderate Past Medical History Reviewed: Historical Data, Nursing Documentation, Vital Signs Vital Signs: Last Vital Signs Temp 98.3 F 07/12/18 09:24 Pulse 92 H 07/12/18 09:24 Resp 20 07/12/18 09:24 BP 121/72 07/12/18 09:24 Pulse Ox 98 07/12/18 09:24 - Medical History PMH: No Chronic Diseases Denies: Depression, Diabetes, HTN Surgical History: No Surg Hx - [facility] Procedures DELIVERY OF PRODUCTS OF CONCEPTION, EXTERNAL APPROACH (05/31/17) DIVISION OF FEMALE PERINEUM, EXTERNAL APPROACH (05/01/15) INTRODUCTION OF SERUM/TOX/VACCINE INTO MUSCLE, PERC APPROACH (05/31/17) REPAIR PERINEUM SKIN, EXTERNAL APPROACH (05/31/17) Family History: States: No Known Family Hx - Social History Hx Tobacco Use: No Hx Alcohol Use: No Hx Substance Use: No - Immunization History Hx Tetanus Toxoid Vaccination: No Hx Influenza Vaccination: No Hx Pneumococcal Vaccination: No Review Of Systems Except As Marked, All Systems Reviewed And Found Negative. Constitutional: Positive for: Fever (subjective fever) ENT: Positive for: Nose Congestion Cardiovascular: Negative for: Chest Pain Respiratory: Positive for: Cough. Negative for: Shortness of Breath Gastrointestinal: Negative for: Nausea, Vomiting Physical Exam - Physical Exam Appears: Non-toxic, No Acute Distress Skin: Normal Color, Warm, Dry Head: Atraumatic, Normacephalic Eye(s): bilateral: Normal Inspection Ear(s): Bilateral: Normal Nose: Normal Oral Mucosa: Moist Throat: Normal, No Erythema, No Exudate Neck: Supple Chest: Symmetrical Cardiovascular: Rhythm Regular Respiratory: Normal Breath Sounds, No Rales, No Rhonchi, No Wheezing Neurological/Psych: Oriented x3, Normal Speech ED Course And Treatment O2 Sat by Pulse Oximetry: 98 (RA) Pulse Ox Interpretation: Normal Medical Decision Making Medical Decision Making: Plan: --Rapid Flu Swab Disposition - Disposition Referrals: [facility] Patti Mack, [Non-Staff] - Disposition: HOME/ ROUTINE Disposition Time: 10:45 Condition: GOOD Additional Instructions: ANGIE AMARAL, thank you for letting us take care of you today. Your provider was Aly Suh DO and you were treated for COUGHING/CONGESTION. The emergency medical care you received today was directed at your acute symptoms. If you were prescribed any medication, please fill it and take as directed. It may take several days for your symptoms to resolve. Return to the Emergency Department if your symptoms worsen, do not improve, or if you have any other problems. Please contact your doctor or call one of the physicians/clinics you have been referred to that are listed on the Patient Visit Information form that is included in your discharge packet. Bring any paperwork you were given at discharge with you along with any medications you are taking to your follow up visit. Our treatment cannot replace ongoing medical care by a primary care provider outside of the emergency department. Thank you for allowing the [facility] team to be part of your care today. Follow up with your primary care doctor in 2-3 days for re-evaluation and further management. Instructions: Viral Syndrome (DC) Forms: [employer] (Slovenian) - Clinical Impression Clinical Impression: Viral syndrome - Scribe Statement The provider has reviewed the documentation as recorded by the Alanibe Navdeep Mack Provider Attestation: All medical record entries made by the Scribe were at my direction and personally dictated by me. I have reviewed the chart and agree that the record accurately reflects my personal performance of the history, physical exam, medical decision making, and the department course for this patient. I have also personally directed, reviewed, and agree with the discharge instructions and disposition.
== END 2018-07-12 10:53 | disposition home or self-care (01) ==
LOC: C.ER 09:13
DX: B34.9 Viral infection, unspecified (principal)